=== PATIENT | male | born 1965 | race Caucasian/White ===

== ENCOUNTER 2017-01-30 20:28 | Emergency (ER) | payer OTHER ==
[2017-01-30 20:43] VITALS: RESP 18; O2SAT 96
--- NOTE | 2017-01-30 21:05 | EDPHY ---
H & P Stated Complaint: back pain from falling on ice - Personal History Current Tetanus/Diphtheria Vaccine: Yes Current Tetanus Diphtheria and Acellular Pertussis (TDAP): Yes - Medical/Surgical History Hx Asthma: No Hx Chronic Respiratory Disease: No Hx Diabetes: No Hx Cardiac Disease: No Hx Renal Disease: No Hx Cirrhosis: No Hx Alcoholism: No Hx HIV/AIDS: No Hx Splenectomy or Spleen Trauma: No Other PMH: denies - Social History Smoking Status: Never smoked Time Seen by Provider: 01/30/17 21:03 HPI/ROS: CHIEF COMPLAINT: Back pain post mechanical fall on ice HISTORY OF PRESENT ILLNESS: 51-year-old male arrives via private vehicle complaining of acute low back pain after he slipped on ice falling onto his low back this evening. No pelvic pain. No straddle injury. He also injured his right elbow and right wrist but states that these are not currently hurting him. Positive head injury with no loss of consciousness. No alcohol or drug use. No peripheral paresthesia, weakness, numbness. No midline C-spine pain. No abdominal pain. REVIEW OF SYSTEMS: A ten point review of systems was performed and is negative with the exception of the items mentioned in the HPI PAST MEDICAL/SURGICAL HISTORY: no anticoagulant use, no relevant medical/ surgical history SOCIAL HISTORY: denies alcohol use at time of incident PHYSICAL EXAM 1) GENERAL: Well-developed, well-nourished, alert and oriented. Answering questions appropriately. 2) HEAD: Normocephalic, atraumatic 3) HEENT: Pupils equal, round, reactive to light bilaterally. Negative Horners. Nasopharynx, oropharynx, clear. No deformity or angulation of nose. No septal hematoma. No rhinorrhea. No oral trauma. Ears bilaterally with normal tympanic membranes. No hemotympanum. No fluid or blood in the external auditory canal. No raccoon eyes. No Williamson sign. Teeth are normally aligned with no gross malocclusion, TMJ bilaterally nontender, facial bones nontender including the zygomatic arch, maxilla mandible. 4) NECK: No cervical collar is on. Posterior cervical spine is nontender, no stepoff, no effusion. Full range of motion which does not elicit any midline cervical spine pain, no posterior midline tenderness, no step-off. 5) LUNGS: Clear to auscultation bilaterally, no wheezes, no rhonchi, no retractions. No obvious signs of trauma. No chest wall pain. No flaring, no grunting. Moving symmetrically. No crepitus. 6) HEART: Regular rate and rhythm, 7) ABDOMEN: No guarding, no rebound, no focal tenderness, no peritoneal signs, no signs of trauma, no ecchymosis 8) MUSCULOSKELETAL: Moving all extremities, no focal areas of tenderness, no obvious trauma. Specifically the right upper extremity was palpated, right elbow , humerus, shoulder, wrist are nontender. No snuffbox pain 9) BACK: Unable to fully differentiate true midline versus just lateral of midline lumbar pain. No visible signs of trauma. Otherwise, No midline vertebral tenderness, no fluctuance, no step-off, no obvious trauma, no visual or palpable abnormality. Patella and Achilles reflexes intact , bilateral strength 5/5 10) SKIN: No laceration. No abrasion DIFFERENTIAL DIAGNOSIS: In no particular order, including but not limited to, fracture, sprain/strain, cauda equina, spinal infectious etiology. (Facundo Esparza) Constitutional: Initial Vital Signs Temperature (C) 36.9 C 01/30/17 20:42 Heart Rate 68 01/30/17 20:42 Respiratory Rate 18 01/30/17 20:42 Blood Pressure 134/78 H 01/30/17 20:42 O2 Sat (%) 96 01/30/17 20:42 O2 Delivery Mode Room Air Allergies/Adverse Reactions: No Known Allergies Allergy (Unverified 01/30/17 20:43) Home Medications: Medication Instructions Recorded Cyclobenzaprine [Flexeril 10 MG 10 mg PO TID #15 tab 01/30/17 (RX)] Lidocaine 5% [Lidoderm 5% Patch 1 ea TD BID #30 patch 01/30/17 (*)] Medical Decision Making - Diagnostics Imaging Results: Imaging Impressions Lumbar Spine X-Ray 01/30/17 21:14 Impression: No acute osseous abnormality. Images reviewed by myself (Facundo Esparza) ED Course/Re-evaluation: 9:48 p.m.: Re-evaluation with serial exams. Discussed his imaging results showing no definitive acute osseous abnormality. Plan will be discharge with Lidoderm patch, Flexeril, usual customary low back pain precautions instructions. Doubt cauda equina . (Facundo Esparza) - Data Points Medications Given: Discontinued Medications Cyclobenzaprine HCl (Flexeril) 10 mg PO EDNOW ONE Stop: 01/30/17 21:14 Last Admin: 01/30/17 21:22 Dose: 10 mg Lidocaine (Lidoderm 5%) 1 ea TD DAILY CARA Stop: 07/29/17 21:44 Last Admin: 01/30/17 22:00 Dose: 1 ea Departure - Departure Disposition: Home, Routine, Self-Care Clinical Impression: Fall due to ice or snow Qualifiers: Encounter type: initial encounter Qualified Code(s): W00.9XXA - Unspecified fall due to ice and snow, initial encounter Back pain Qualifiers: Back pain location: low back pain Chronicity: acute Back pain laterality: right Sciatica presence: without sciatica Qualified Code(s): M54.5 - Low back pain Condition: Good Instructions: Back Pain (ED) Additional Instructions: Seek medical attention if you develop new or worsening pain, if you develop bladder or bowel dysfunction, numbness around your perineum, foot drop, or any other symptoms that concern you. Referrals: Magnus Castellon MD [Primary Care Provider] - As per Instructions Prescriptions: Cyclobenzaprine [Flexeril 10 MG (RX)] 10 mg PO TID #15 tab Lidocaine 5% [Lidoderm 5% Patch (*)] 1 ea TD BID #30 patch
[2017-01-30] MEDS ORDERED: CYCLOBENZAPRINE 10 MG TAB PO ONE (21:13)
[2017-01-30] MEDS ORDERED: LIDOCAINE 5% 1 EA PATCH TD SCH (21:45)
[2017-01-30] MEDS ORDERED: CYCLOBENZAPRINE 10 MG TAB ONE (22:06)
[2017-01-30 22:16] VITALS: BP 132/75; PULSE 72; TEMP 97.9
[2017-01-31] MEDS ORDERED: PATCH REMOVAL 1 EA PATCH TD SCH (21:00)
== END 2017-01-30 22:16 | disposition home or self-care (01) ==
DX: S39.92XA Unspecified injury of lower back, initial encounter (principal); W00.9XXA Unspecified fall due to ice and snow, initial encounter; Y99.8 Other external cause status